=== PATIENT | female | born 1965 | race Asian ===

== ENCOUNTER 2018-10-19 09:59 | Day surgery (SDC) | payer OTHER ==
[~2018-10-19 09:59] MED LIST: Buffered Lidocaine 0.9% SYRIN* 5 ML/SYR SYRINGE INTRADERM ONE; Famotidine IV* 10 MG/ML 2 ML (20 mg) IV ONE
[2018-10-19] MEDS ORDERED: ceFAZolin 2 GM PREMIX in ORs 2 GM/50 ML BAG IVPB ONE (10:28)
[2018-10-19] MEDS ORDERED: Famotidine IV* 10 MG/ML 2 ML (20 mg) ONE (10:28)
[2018-10-19] MEDS ORDERED: Buffered Lidocaine 0.9% SYRIN* 5 ML/SYR SYRINGE ONE (10:29)
[2018-10-19] MEDS ORDERED: fentaNYL* 50 MCG/ML 2 ML VIAL (100 MCG VIAL) ONE (11:25)
[2018-10-19] MEDS ORDERED: Midazolam* 1 MG/ML 10 ML VIAL (10 MG) ONE (11:25)
[2018-10-19] MEDS ORDERED: Ketorolac INJ* 30 MG/ML 1 ML VIAL ONE (11:25)
[2018-10-19] MEDS ORDERED: KETAMINE HCL* 50 MG/ML 10 ML VIAL ONE (11:25)
[2018-10-19] MEDS ORDERED: Dexamethasone IV* 4 MG/ML 1 ML (4 MG) ONE ×2 (11:25→11:47)
[2018-10-19] MEDS ORDERED: Propofol* 10 MG/ML 20 ML BTL ONE (11:25)
[2018-10-19] MEDS ORDERED: Ondansetron INJ* 2 MG/ML VIAL ONE (11:25)
[2018-10-19] MEDS ORDERED: Lidocaine 2% PF * 5 ML VIAL ONE (11:25)
[2018-10-19] MEDS ORDERED: Bupivacaine 0.25% SDV PF* 10 ML VIAL INJ ONE (11:47)
[2018-10-19] MEDS ORDERED: Lidocaine 1% INJ* 10 MG/ML 30 ML SDV ONE (11:47)
[2018-10-19] MEDS ORDERED: oxyCODONE/Acetamin 5/325 MG* TAB PO PRN (12:53)
[2018-10-19] MEDS ORDERED: fentaNYL* 50 MCG/ML 2 ML VIAL (100 MCG VIAL) IV PRN (12:53)
[2018-10-19] MEDS ORDERED: Naloxone* 0.4 MG/ML 1 ML VIAL IV PRN (12:53)
[2018-10-19] MEDS ORDERED: Ondansetron INJ* 2 MG/ML VIAL IV PRN (12:53)
[2018-10-19 14:39] VITALS: BP 120/76
--- NOTE | 2018-10-20 11:28 | OP ---
DATE OF OPERATION: 10/19/18 - [facility] DATE OF : 69. SURGEON: New Littlejohn DPM. ANESTHESIA: MAC with local. PRE-OP DIAGNOSIS: Left fourth and fifth hammertoes. POST-OP DIAGNOSIS: Left fourth and fifth hammertoes. OPERATIVE PROCEDURE: Left fourth toe hemiphalangectomy and left fifth toe arthroplasty. ESTIMATED BLOOD LOSS: Less than 10 cc. IV FLUIDS: LR 1000 cc. DRAINS: None. SPECIMENS: Bone from the proximal phalanx of both left fourth and fifth toes. DESCRIPTION OF PROCEDURE: The patient was taken to the operating room and was placed in the supine position. Time-out was called and OR team agreed. The left foot was then blocked with 6 cc of 1% lidocaine plain in a ring-block fashion, 3 cc to each left fourth and fifth toes. The foot was then prepped and draped in a sterile manner. The left foot was then exsanguinated with an Esmarch bandage and the cuff was inflated to 250 mmHg. Attention was then paid to the left fourth and fifth toes. The left fifth toe is in a rigid hammertoe position, is also in an adductovarus position thereby directly abutting or hitting the adjacent fourth toe. The fourth toe had a slight hammertoe deformity. This was flexible; however, there was a painful callus or hyperkeratotic plantar keratoma on the lateral aspect of the toe. This appears to be the direct result of the head of the proximal phalanx of the fourth toe being directly pressured by the distal tip of the fifth toe. The goal here was to derotate the fifth toe and remove the lateral portion of the head of the proximal phalanx of the fourth toe in the compressed area. I went ahead and did this first on the fourth metatarsal with a linier incision right on top of the toe. This was followed by sharp and blunt dissection starting from the epidermis, dermis, subcutaneous tissue down to the deep fascia and the capsule. The capsule was incised. The periosteum was lifted off the bone. The extensor tendon was retracted laterally away from the site. I went ahead and removed the lateral side of the head of the proximal phalanx on the fourth toe thereby decompressing that site. Once it was determined that adequate bone was removed, I went ahead and closed the toe in a layered anatomical fashion with a 4-0 nylon and 3-0 Polysorb. Attention was then paid to the left fifth toe in the said adductovarus position. I made a semi-elliptical wedge-type of skin incision in a dorsal medial to a plantar lateral direction. I removed the wedge of skin, creating a wedge-like defect. I went ahead and carried my dissection down through the skin all the the way down to the head of the proximal phalanx of the fifth toe. I removed the bone, decompressing the area, allowing me to derotate the fifth toe away from the fourth. Once this was achieved, I went ahead and irrigated the site, the wound, and then went ahead and closed it in a layered anatomical fashion with a combination of Polysorb for the subcutaneous tissue and the tendon as well as 4-0 nylon to the skin. This completed the procedure. I injected the site with 6 cc of 0.25% Marcaine plain and 8 mg of 2 cc dexamethasone phosphate. This completed the procedure. The cuff was deflated and the foot was then placed in a dry sterile dressing. The patient was taken to recovery in stable condition, and was later discharged in stable condition as well. She will follow up in our office in 3 days. [id number]/CPS #: [id number]
== END 2018-10-19 14:52 | disposition home or self-care (01) ==
LOC: OR 09:59
PROVIDERS: ATTEND Podiatrist
DX: M20.42 Other hammer toe(s) (acquired), left foot (principal)
CPT/HCPCS: 88304; 88311; J0690; J1100; J1885; J2250; J2405; J2704; J3010; J3490